=== PATIENT | male | born 1980 | race Caucasian/White ===

== ENCOUNTER 2023-01-29 17:40 | Inpatient (IN) | payer MEDICAID ==
[~2023-01-29] VITALS: Ht 175.3 cm; Wt 113.4 kg
[2023-01-29] MEDS ORDERED: ALBUTEROL (0.083%) 2.5MG/3ML NEB HHN STA ×2 (18:22→22:02)
[2023-01-29] MEDS ORDERED: IPRATROPIUM BROMIDE (0.02%) 0.5MG/2.5ML NEB HHN STA ×2 (18:22→22:02)
[2023-01-29 19:06] LABS: BG BASE EXCESS 0.7 mmol/L (-2.0-2.0); BG CARBOXYHEMOGLOBIN 0.2 % (0.5-1.5); BG DEOXYHEMOGLOBIN 3.5 % (0.0-5.0); BG FRACTION INSPIRED OXYGEN 21; BG HCO3 ACT 22.5 mmol/L (22.0-26.0); BG METHEMOGLOBIN 0.3 % (0.0-1.5); BG OXYGEN SATURATION 96.5 % (92.0-98.5); BG PH 7.508 (7.350-7.450); BG SAMPLE SITE RIGHT RADIAL; BG TOTAL HEMOGLOBIN 15.6 g/dL (12.0-18.0); BG VENT MODE ROOM AIR
[2023-01-29 21:38] LABS: BASOPHILS % 0.7 % (0.0-2.0); HEMATOCRIT. 42.9 % (42.0-52.0); HEMOGLOBIN. 14.7 g/dL (14.0-18.0); LYMPHOCYTES % 31.2 % (20.0-50.0); MEAN CORPUSCULAR HEMOGLOBIN 28.8 pg (28.0-32.0); MEAN CORPUSCULAR VOLUME 84.2 fL (80.0-94.0); MEAN PLATELET VOLUME 8.2 fl (7.4-10.4); MONOCYTES % 11.7 % (2.0-8.0); NEUTROPHILS % 55.4 % (40.0-76.0); PLATELET 194 x1000/uL (130-400); RED BLOOD CELL COUNT 5.09 mill/uL (4.7-6.1); RED CELL DISTRIBUTION WIDTH 13.9 % (11.6-14.6)
[2023-01-29 21:46] LABS: CHLORIDE 106 mEq/L (98-107)
[2023-01-29 21:55] LABS: ETHANOL BLOOD < 10 mg/dL (-10)
[2023-01-29 23:15] VITALS: PULSE 118; RESP 20; O2SAT 100
[2023-01-30] MEDS ORDERED: CEFTRIAXONE 1GM PREMIX 50 ML IV NR (09:30)
[2023-01-30] MEDS ORDERED: DOCUSATE SODIUM 100MG CAPSULE PO PRN (09:30)
[2023-01-30] MEDS ORDERED: IPRATROPIUM/ALBUTEROL 0.5-3(2.5)MG/3ML NEB HHN PRN (09:30)
[2023-01-30] MEDS ORDERED: CLONIDINE 0.1MG TABLET PO PRN (09:30)
[2023-01-30] MEDS ORDERED: ACETAMINOPHEN 325MG TABLET PO PRN (09:30)
[2023-01-30] MEDS ORDERED: MAGNESIUM/ALUMINUM HYDROXIDE/SIMETHICONE 30ML UDC PO PRN (09:30)
[2023-01-30] MEDS ORDERED: GUAIFENESIN 200MG/10ML SUGAR FREE UDC PO PRN (09:30)
[2023-01-30] MEDS ORDERED: ONDANSETRON HCL 4MG/2ML INJ IV PRN (09:30)
[2023-01-30] MEDS: ENOXAPARIN 30MG/0.3ML SYR SUBCUT SCH ×2 (10:00→21:05)
[2023-01-30] MEDS ORDERED: AZITHROMYCIN 500MG/250ML 250 ML IV NR (10:30)
[2023-01-30] MEDS ORDERED: DEXAMETHASONE 6MG TABLET PO SCH (12:30)
[2023-01-30] MEDS ORDERED: SODIUM CHLORIDE 0.9% 1,000 ML IV ONE (14:45)
[2023-01-30 16:00] VITALS: BP 135/89; PULSE 103; RESP 18; TEMP 98
[2023-01-30 16:33] VITALS: BP 123/79; PULSE 98; RESP 18; TEMP 98.8
[2023-01-30] MEDS: PANTOPRAZOLE 40MG DR TABLET PO SCH (18:32)
[2023-01-30 20:00] VITALS: BP 132/81; PULSE 101; RESP 20; TEMP 96.8
[2023-01-30 22:00] VITALS: BP 133/86; PULSE 82; TEMP 97
[2023-01-31] VITALS: BP 115/72; PULSE 85; RESP 20; TEMP 97.3
[2023-01-31 03:04] LABS: CREATINE KINASE 149 IU/L (39-308)
[2023-01-31 04:00] VITALS: BP 102/66; PULSE 85; RESP 20; TEMP 97.9
[2023-01-31 07:01] LABS: BASOPHILS % 0.2 % (0.0-2.0); HEMATOCRIT. 41.2 % (42.0-52.0); HEMOGLOBIN. 14.3 g/dL (14.0-18.0); LYMPHOCYTES % 31.9 % (20.0-50.0); MEAN CORPUSCULAR HEMOGLOBIN 29.3 pg (28.0-32.0); MEAN CORPUSCULAR VOLUME 84.1 fL (80.0-94.0); MEAN PLATELET VOLUME 8.3 fl (7.4-10.4); MONOCYTES % 13.6 % (2.0-8.0); NEUTROPHILS % 54.3 % (40.0-76.0); PLATELET 206 x1000/uL (130-400); RED CELL DISTRIBUTION WIDTH 14.2 % (11.6-14.6)
[2023-01-31 07:20] LABS: CHLORIDE 106 mEq/L (98-107)
[2023-01-31 07:36] LABS: T4 FREE 1.25 ng/dL (0.76-1.46)
[2023-01-31 08:00] VITALS: BP 116/88; PULSE 92; RESP 20; TEMP 98
[2023-01-31] MEDS: CEFTRIAXONE 1,000 MG in DEXTROSE 5% WATER 50 ML IV SCH (08:58)
[2023-01-31] MEDS: PANTOPRAZOLE 40MG DR TABLET PO SCH (08:58)
[2023-01-31] MEDS: POLYETHYLENE GLYCOL 3350 (17GM) 1 DOSE PACK PO SCH ×2 (09:00→11:00)
[2023-01-31] MEDS: ACETAMINOPHEN 325MG TABLET PO PRN ×2 (09:53→18:00)
[2023-01-31] MEDS: AZITHROMYCIN 500 MG in DEXT 5% WATER 250 ML IV SCH (09:54)
[2023-01-31] MEDS: ENOXAPARIN 30MG/0.3ML SYR SUBCUT SCH ×2 (10:29→22:08)
[2023-01-31 12:00] VITALS: BP 104/69; PULSE 87; RESP 20; TEMP 96.6
[2023-01-31 16:00] VITALS: BP 121/82; PULSE 96; RESP 20; TEMP 97.7
[2023-01-31] MEDS: ALBUTEROL 6.7GM HFA INHALER ORI SCH (19:00)
[2023-01-31 20:00] VITALS: BP 119/82; PULSE 98; RESP 20; TEMP 97.6
[2023-02-01 04:00] VITALS: BP 123/69; PULSE 107; RESP 20; TEMP 98.1
[2023-02-01 05:47] LABS: BASOPHILS % 0.4 % (0.0-2.0); EOSINOPHILS % 0.3 % (0.0-5.0); HEMOGLOBIN. 13.2 g/dL (14.0-18.0); LYMPHOCYTES % 33.3 % (20.0-50.0); MEAN CORPUSCULAR HEMOGLOBIN 28.8 pg (28.0-32.0); MEAN PLATELET VOLUME 8.5 fl (7.4-10.4); MONOCYTES % 10.6 % (2.0-8.0); NEUTROPHILS % 55.4 % (40.0-76.0); PLATELET 178 x1000/uL (130-400); RED BLOOD CELL COUNT 4.58 mill/uL (4.7-6.1); RED CELL DISTRIBUTION WIDTH 13.8 % (11.6-14.6)
[2023-02-01 05:57] LABS: CHLORIDE 104 mEq/L (98-107)
[2023-02-01 08:00] VITALS: BP 132/75; PULSE 97; RESP 20; TEMP 97.9
[2023-02-01] MEDS ORDERED: FAMOTIDINE 20MG TABLET PO SCH (09:00)
[2023-02-01] MEDS: POLYETHYLENE GLYCOL 3350 (17GM) 1 DOSE PACK PO SCH ×2 (09:00)
[2023-02-01] MEDS: ENOXAPARIN 30MG/0.3ML SYR SUBCUT SCH (09:26)
[2023-02-01] MEDS: CEFTRIAXONE 1,000 MG in DEXTROSE 5% WATER 50 ML IV SCH (09:26)
[2023-02-01] MEDS: AZITHROMYCIN 500 MG in DEXT 5% WATER 250 ML IV SCH (10:11)
[2023-02-01 12:00] VITALS: BP 122/70; PULSE 89; RESP 20; TEMP 97.2
[2023-02-01] MEDS: ALBUTEROL 6.7GM HFA INHALER ORI SCH (12:39)
[2023-02-01] MEDS ORDERED: PREDNISONE 20MG TABLET PO NR (15:00)
[2023-02-01] MEDS: ACETAMINOPHEN 325MG TABLET PO PRN (15:42)
[2023-02-01 16:00] VITALS: BP 125/69; PULSE 86; RESP 20; TEMP 97.8
[2023-02-01 16:26] VITALS: BP 125/69; PULSE 66; TEMP 97.8; O2SAT 100
== END 2023-02-01 18:09 | disposition home or self-care (01) | DRG 137 ==
LOC: ER 17:40 → MICUSO 23:35 → ENRESERV 01-30 00:58 → 7WST 01-30 16:32
PROVIDERS: ADMIT Internal Medicine; ATTEND Internal Medicine
DX: U07.1 COVID-19 (principal); J96.00 Acute respiratory failure, unspecified whether with hypoxia or hypercapnia; J12.82 Pneumonia due to coronavirus disease 2019; E83.51 Hypocalcemia; K59.00 Constipation, unspecified; J98.11 Atelectasis; M06.9 Rheumatoid arthritis, unspecified; I51.7 Cardiomegaly; Z86.11 Personal history of tuberculosis; E66.9 Obesity, unspecified
CPT/HCPCS: 36415; 36600; 71045; 80053; 80320; 82375; 82550; 82728; 82805; 83605; 83880; 84145; 84439; 84443; 84484; 85025; 85379; 87426; 93005; 93970; 94640; 97162; 99285; J0456; J0696; J1650; J7060; J7512; G0480